=== PATIENT | female | born 1995 | race Caucasian/White ===

== ENCOUNTER 2024-07-13 13:35 | Outpatient (CLI) | payer MEDICAID, SELFPAY ==
[2024-07-15 05:47] LABS: QuantiFERON Mitogen minus NIL 9.89 IU/mL; QuantiFERON NIL 0.11 IU/mL; Quantiferon Plus TB1 minus NIL 0.05 IU/mL (<=0.34); Quantiferon TB Gold Plus Negative (Negative)
== END 2024-07-13 13:36 | disposition home or self-care (01) ==
PROVIDERS: Visit Provider Emergency Medicine
DX: Z11.1 Encounter for screening for respiratory tuberculosis (principal)
CPT/HCPCS: 36415; 86480